=== PATIENT | male | born 1985 | race American Indian/Alaskan Native ===

== ENCOUNTER 2018-12-03 10:26 | Emergency (ER) | payer BC ==
[2018-12-03 11:29] LABS: Basophils # (Auto) 0.1 K/mm3 (0.0-0.1); Basophils % (Auto) 0.8 % (0.0-1.8); Eosinophils # (Auto) 0.1 K/mm3 (0.0-0.4); Eosinophils % (Auto) 0.7 % (0.0-4.3); Hematocrit 44.3 % (35.5-45.6); Hemoglobin 15.1 gm/dl (11.8-15.2); Lymphocytes # (Auto) 1.2 K/mm3 (1.2-5.4); Lymphocytes % (Auto) 17.7 % (13.4-35.0); Mean Corpuscular HGB Conc 34 % (32-34); Mean Corpuscular Volume 101 fl (84-94); Monocytes # (Auto) 0.7 K/mm3 (0.0-0.8); Monocytes % (Auto) 10.1 % (0.0-7.3); Platelet Count 250 K/mm3 (140-440); Red Blood Count 4.38 M/mm3 (3.65-5.03)
[2018-12-03 11:30] LABS: Bilirubin,Urine NEG (Negative); Blood,Urine NEG (Negative); Color,Urine Yellow (Yellow); Protein,Urine <15 mg/dL mg/dL (Negative); Urobilinogen,Urine < 2.0 mg/dL (<2.0); WBC,Urine < 1.0 /HPF (0.0-6.0)
[2018-12-03] MEDS ORDERED: ATIVAN IV ONE (11:31)
[2018-12-03 11:45] LABS: BUN/Creatinine Ratio 13; Blood Urea Nitrogen 10 mg/dL (9-20); Calcium 9.5 mg/dL (8.4-10.2); Hemolysis Index 6
[2018-12-03 11:46] LABS: Amphetamine Screen,Urine PRESUMPTIVE NEGATIVE; Benzodiazepines Screen,Urine PRESUMPTIVE NEGATIVE; Cocaine Screen,Urine PRESUMPTIVE NEGATIVE; Methadone Screen,Urine PRESUMPTIVE NEGATIVE; Opiate Screen,Urine PRESUMPTIVE NEGATIVE
[2018-12-03 12:14] LABS: Cannabinoid Screen,Urine PRESUMPTIVE POSITIVE
--- NOTE | 2018-12-03 12:17 | Emergency Department Report ---
ED Alcohol HPI - General Chief Complaint: Alcohol Stated Complaint: DETOX Time Seen by Provider: 12/03/18 10:58 Source: patient Mode of arrival: Ambulatory Limitations: No Limitations - History of Present Illness Initial Comments: 33-year-old male the past medical history alcohol abuse presents to the hospital from [place] for alcohol withdrawal symptoms. Apparently patient went [place] last night with flashing prior to arrival to the facility. It appears the patient was to start an outpatient program. There was concerns because by this morning patient was exhibiting withdrawal symptoms was told to come to the ER since no physician was available to medicate him. Pt drank a beer prior to arrival with some improvement to the ED but still feels tremulous. Last night he had episodes of nausea vomiting for since resolved. No complaints of pain, hematemesis, melena hematochezia, fever, or previous seizures. He also admits to marijuana abuse. - Related Data Allergies Allergy/AdvReac Type Severity Reaction Status Date / Time No Known Allergies Allergy Unverified 12/03/18 10:36 ED Review of Systems ROS: Stated complaint: DETOX Other details as noted in HPI Comment: All other systems reviewed and negative ED Past Medical Hx - Past Medical History Previous Medical History?: Yes Hx Psychiatric Treatment: Yes (Alcohol abuse) - Surgical History Past Surgical History?: No - Social History Smoking Status: Current Every Day Smoker Substance Use Type: Alcohol, Marijuana ED Physical Exam - General Limitations: No Limitations - Other Other exam information: Normal: No acute distress Head: Atraumatic Eyes: Normal appearance, pupils equally reactive to light, extraocular movements intact ENT: Moist mucous membranes Neck: Normal appearance, no midline cervical tenderness, no meningismus Chest: Clear to auscultation bilaterally, no wheezes, rales, crackles Cardiovascular: Regular rate and rhythm Abdomen: Soft, nontender, nondistended, no rebound or guarding, normal bowel sounds Back: Normal. Extremity: Normal appearance, full range of motion Neuro: Alert and oriented 3, speech normal, no gross motor sensory deficit, mild tremor Psych: Appropriate Skin: No rash ED Course Vital Signs 12/03/18 12/03/18 12/03/18 10:33 11:18 13:23 Temperature 98.5 F Pulse Rate 89 67 67 Respiratory 18 18 18 Rate Blood Pressure 168/99 Blood Pressure 150/78 136/72 [Left] O2 Sat by Pulse 98 100 98 Oximetry 12/03/18 12/03/18 15:37 19:27 Temperature Pulse Rate 77 74 Respiratory 18 18 Rate Blood Pressure Blood Pressure 138/72 159/92 [Left] O2 Sat by Pulse 99 99 Oximetry - Consultations Consultation #1: 12/03/18 12:29 case discussed with Alan with [facility], he will call [facility] to assist with appropriate disposition 12/03/18 12:41 pt is in PHP (outpt) and needs inpatient tx. Alan will come to assess pt for inpatient detox admission ED Medical Decision Making - Lab Data Result diagrams: 12/03/18 10:47 12/03/18 03:07 Lab Results 12/03/18 12/03/18 12/03/18 Range/Units 03:07 03:07 10:47 WBC (4.5-11.0) K/mm3 RBC (3.65-5.03) M/mm3 Hgb (11.8-15.2) gm/dl Hct (35.5-45.6) % MCV (84-94) fl MCH (28-32) pg MCHC (32-34) % RDW (13.2-15.2) % Plt Count (140-440) K/mm3 Lymph % (Auto) (13.4-35.0) % [place] % (Auto) (0.0-7.3) % Eos % (Auto) (0.0-4.3) % Baso % (Auto) (0.0-1.8) % Lymph # (1.2-5.4) K/mm3 [place] # (0.0-0.8) K/mm3 Eos # (0.0-0.4) K/mm3 Baso # (0.0-0.1) K/mm3 Seg Neutrophils % (40.0-70.0) % Seg Neutrophils # (1.8-7.7) K/mm3 Sodium 138 (137-145) mmol/L Potassium 4.0 (3.6-5.0) mmol/L Chloride 96.8 L (98-107) mmol/L Carbon Dioxide 28 (22-30) mmol/L Anion Gap 17 mmol/L BUN 10 (9-20) mg/dL Creatinine 0.8 (0.8-1.5) mg/dL Estimated GFR > 60 ml/min BUN/Creatinine Ratio 13 % Glucose 101 H (75-100) mg/dL Calcium 9.5 (8.4-10.2) mg/dL Magnesium (1.7-2.3) mg/dL Urine Color (Yellow) Urine Turbidity (Clear) Urine pH (5.0-7.0) Ur Specific [place] (1.003-1.030) Urine Protein (Negative) mg/dL Urine Glucose (UA) (Negative) mg/dL Urine Ketones (Negative) mg/dL Urine Blood (Negative) Urine Nitrite (Negative) Urine Bilirubin (Negative) Urine Urobilinogen (<2.0) mg/dL Ur Leukocyte Esterase (Negative) Urine WBC (Auto) (0.0-6.0) /HPF Urine RBC (Auto) (0.0-6.0) /HPF Salicylates < 0.3 L (2.8-20.0) mg/dL Urine Opiates Screen Urine Methadone Screen Acetaminophen (10.0-30.0) ug/mL Ur Barbiturates Screen Ur Phencyclidine Scrn Ur Amphetamines Screen U Benzodiazepines Scrn Urine Cocaine Screen U Marijuana (THC) Screen Drugs of Abuse Note Plasma/Serum Alcohol 0.09 H (0-0.07) % 12/03/18 12/03/18 12/03/18 Range/Units 10:47 10:47 10:47 WBC 6.9 (4.5-11.0) K/mm3 RBC 4.38 (3.65-5.03) M/mm3 Hgb 15.1 (11.8-15.2) gm/dl Hct 44.3 (35.5-45.6) % MCV 101 H (84-94) fl MCH 34 H (28-32) pg MCHC 34 (32-34) % RDW 13.0 L (13.2-15.2) % Plt Count 250 (140-440) K/mm3 Lymph % (Auto) 17.7 (13.4-35.0) % [place] % (Auto) 10.1 H (0.0-7.3) % Eos % (Auto) 0.7 (0.0-4.3) % Baso % (Auto) 0.8 (0.0-1.8) % Lymph # 1.2 (1.2-5.4) K/mm3 [place] # 0.7 (0.0-0.8) K/mm3 Eos # 0.1 (0.0-0.4) K/mm3 Baso # 0.1 (0.0-0.1) K/mm3 Seg Neutrophils % 70.7 H (40.0-70.0) % Seg Neutrophils # 4.8 (1.8-7.7) K/mm3 Sodium (137-145) mmol/L Potassium (3.6-5.0) mmol/L Chloride (98-107) mmol/L Carbon Dioxide (22-30) mmol/L Anion Gap mmol/L BUN (9-20) mg/dL Creatinine (0.8-1.5) mg/dL Estimated GFR ml/min BUN/Creatinine Ratio % Glucose (75-100) mg/dL Calcium (8.4-10.2) mg/dL Magnesium 2.00 (1.7-2.3) mg/dL Urine Color (Yellow) Urine Turbidity (Clear) Urine pH (5.0-7.0) Ur Specific [place] (1.003-1.030) Urine Protein (Negative) mg/dL Urine Glucose (UA) (Negative) mg/dL Urine Ketones (Negative) mg/dL Urine Blood (Negative) Urine Nitrite (Negative) Urine Bilirubin (Negative) Urine Urobilinogen (<2.0) mg/dL Ur Leukocyte Esterase (Negative) Urine WBC (Auto) (0.0-6.0) /HPF Urine RBC (Auto) (0.0-6.0) /HPF Salicylates (2.8-20.0) mg/dL Urine Opiates Screen Urine Methadone Screen Acetaminophen < 5.0 L (10.0-30.0) ug/mL Ur Barbiturates Screen Ur Phencyclidine Scrn Ur Amphetamines Screen U Benzodiazepines Scrn Urine Cocaine Screen U Marijuana (THC) Screen Drugs of Abuse Note Plasma/Serum Alcohol (0-0.07) % 12/03/18 12/03/18 Range/Units 11:16 11:16 WBC (4.5-11.0) K/mm3 RBC (3.65-5.03) M/mm3 Hgb (11.8-15.2) gm/dl Hct (35.5-45.6) % MCV (84-94) fl MCH (28-32) pg MCHC (32-34) % RDW (13.2-15.2) % Plt Count (140-440) K/mm3 Lymph % (Auto) (13.4-35.0) % [place] % (Auto) (0.0-7.3) % Eos % (Auto) (0.0-4.3) % Baso % (Auto) (0.0-1.8) % Lymph # (1.2-5.4) K/mm3 [place] # (0.0-0.8) K/mm3 Eos # (0.0-0.4) K/mm3 Baso # (0.0-0.1) K/mm3 Seg Neutrophils % (40.0-70.0) % Seg Neutrophils # (1.8-7.7) K/mm3 Sodium (137-145) mmol/L Potassium (3.6-5.0) mmol/L Chloride (98-107) mmol/L Carbon Dioxide (22-30) mmol/L Anion Gap mmol/L BUN (9-20) mg/dL Creatinine (0.8-1.5) mg/dL Estimated GFR ml/min BUN/Creatinine Ratio % Glucose (75-100) mg/dL Calcium (8.4-10.2) mg/dL Magnesium (1.7-2.3) mg/dL Urine Color Yellow (Yellow) Urine Turbidity Clear (Clear) Urine pH 6.0 (5.0-7.0) Ur Specific [place] 1.017 (1.003-1.030) Urine Protein <15 mg/dl (Negative) mg/dL Urine Glucose (UA) Neg (Negative) mg/dL Urine Ketones Neg (Negative) mg/dL Urine Blood Neg (Negative) Urine Nitrite Neg (Negative) Urine Bilirubin Neg (Negative) Urine Urobilinogen < 2.0 (<2.0) mg/dL Ur Leukocyte Esterase Neg (Negative) Urine WBC (Auto) < 1.0 (0.0-6.0) /HPF Urine RBC (Auto) 3.0 (0.0-6.0) /HPF Salicylates (2.8-20.0) mg/dL Urine Opiates Screen Presumptive negative Urine Methadone Screen Presumptive negative Acetaminophen (10.0-30.0) ug/mL Ur Barbiturates Screen Presumptive negative Ur Phencyclidine Scrn Presumptive negative Ur Amphetamines Screen Presumptive negative U Benzodiazepines Scrn Presumptive negative Urine Cocaine Screen Presumptive negative U Marijuana (THC) Screen Presumptive positive Drugs of Abuse Note Disclamer Plasma/Serum Alcohol (0-0.07) % - Differential Diagnosis polys, substance abuse, alcohol intoxication Critical Care Time: No Critical care attestation.: If time is entered above; I have spent that time in minutes in the direct care of this critically ill patient, excluding procedure time. ED Disposition Clinical Impression: Alcohol abuse, Desire for detoxification, Medical clearance for psychiatric admission Disposition: [id number]/[id number] PSY HOSP/PSY UNIT Is pt being admited?: No Does the pt Need Aspirin: No Condition: Stable Time of Disposition: 19:28 (awaiting acceptance)
[2018-12-03] MEDS ORDERED: VITAMIN B-1 100 MG, FOLVITE 1 MG, INFUVITE 10 ML in NACL 0.9% 1000 ML 1,000 ML IV ONE (12:31)
[2018-12-03] MEDS ORDERED: ATIVAN IV PRN ×2 (19:47)
[2018-12-03 20:08] VITALS: BP 146/86
== END 2018-12-03 22:37 ==
LOC: EDBD → ED 10:26
DX: F10.239 Alcohol dependence with withdrawal, unspecified (principal); F10.129 Alcohol abuse with intoxication, unspecified; F12.10 Cannabis abuse, uncomplicated; F17.200 Nicotine dependence, unspecified, uncomplicated; Y90.1 Blood alcohol level of 20-39 mg/100 ml
CPT/HCPCS: 36415; 80048; 80307; 81001; 83735; 85025; 96365; 96366; 96375; 99285; J2060; J3411; J7030; 80320; G0480

== ENCOUNTER 2019-06-10 11:10 | Emergency (ER) | payer BC ==
[2019-06-10 11:24] VITALS: BP 111/74
--- NOTE | 2019-06-10 11:27 | Emergency Department Report ---
Stated Complaint: RASH ON BOTTOM AND LEGS Time Seen by Provider: 06/10/19 11:23 - HPI History of Present Illness: This is a 34 y.o. M. that presents to the ER with rash to scrotal area x 2 weeks. PMH HTN Current smoker States his girlfriend have similar rash to abdomen. Reports foul smelling drainage and pruritus. - Exam Vital Signs: Vital Signs 06/10/19 11:13 Temperature 99.1 F Pulse Rate 78 Respiratory 18 Rate Blood Pressure 111/74 O2 Sat by Pulse 98 Oximetry MSE screening note: Focused history and physical exam performed. Due to findings the following was ordered: ED Disposition for MSE Condition: Stable
--- NOTE | 2019-06-10 11:58 | Emergency Department Report ---
Chief Complaint: Skin Rash Stated Complaint: RASH ON BOTTOM AND LEGS Time Seen by Provider: 06/10/19 11:23 - HPI History of Present Illness: 34-year-old -[place] male presents to the emergency room for 2-week history of a rash on the inner thigh and scrotum. Patient reports that the rash itches and peacock at times. Patient is not tried any treatments. Patient reports he does have a primary care provider but it is very far and he would like for us also to refer him to a primary care provider that is close. Patient denies any injury denies any penile discharge no drainage. - Exam Vital Signs: Vital Signs 06/10/19 11:13 Temperature 99.1 F Pulse Rate 78 Respiratory 18 Rate Blood Pressure 111/74 O2 Sat by Pulse 98 Oximetry Physical Exam: Patient is alert and oriented x3 no acute distress : Patient has a hypopigmented raised border rash to the scrotum and inner thigh and rectum area. There is no drainage nonerythematous nonedematous. MSE screening note: Focused history and physical exam performed. Due to findings the following was ordered: 34-year-old -[place] male presents to the emergency room for 2-week history of a rash on the inner thigh and scrotum. Patient reports that the rash itches and peacock at times. Patient is not tried any treatments. Patient reports he does have a primary care provider but it is very far and he would like for us also to refer him to a primary care provider that is close. Patient denies any injury denies any penile discharge no drainage. Discussed the patient is appears to be tinea infection. I recommend patient to get [id number] Lotrisone and jock itch powder. I discussed with patient to use the Lotrisone twice a day and powder as well. Discussed the patient to keep the area clean and dry. And he can follow-up with the primary care provider. ED Disposition for MSE Is pt being admited?: No Does the pt Need Aspirin: No Condition: Stable Instructions: Jock Itch (ED) Additional Instructions: I recommend patient to get [id number] Lotrisone and jock itch powder. I discussed with patient to use the Lotrisone twice a day and powder as well. Discussed the patient to keep the area clean and dry. And he can follow-up with the primary care provider. Referrals: JODIE SANTO [Other] - 3-5 Days SHANIKA DORSEY MD [Staff Physician] - 3-5 Days
== END 2019-06-10 12:07 | disposition left against medical advice (07) ==
LOC: ED 11:10
DX: B35.9 Dermatophytosis, unspecified (principal)
CPT/HCPCS: 99282